=== PATIENT | male | born 1950 | race Caucasian/White ===

== ENCOUNTER 2019-09-26 05:39 | Inpatient (IN) ==
[2019-09-26] MEDS ORDERED: ceFAZolin 1,000 MG in SYRINGE 1 EACH IV ONE (06:00)
[2019-09-26] MEDS ORDERED: VANCOMYCIN INJ 1,000 MG in SODIUM CHLORIDE 0.9% 250 ML IV ONE (06:00)
[2019-09-26] MEDS ORDERED: ceFAZolin 1,000 MG VIAL ONE (06:03)
[2019-09-26] MEDS ORDERED: VANCOMYCIN 1,000 MG VIAL ONE (06:04)
[2019-09-26] MEDS ORDERED: GABAPENTIN 400 MG CAPSULE PO ONE (06:29)
[2019-09-26] MEDS ORDERED: DIAZEPAM 5 MG TABLET PO ONE (06:29)
[2019-09-26] MEDS ORDERED: ACETAMINOPHEN 500 MG TABLET PO ONE (06:29)
[2019-09-26] MEDS ORDERED: PANTOPRAZOLE 40 MG TABLET PO ONE ×2 (06:29→07:04)
[2019-09-26] MEDS ORDERED: LACTATED RINGERS 1,000 ML IV SCH (06:30)
[2019-09-26] MEDS ORDERED: PHENYLEPHRINE DRIP 20 MG/250 ML PREMIX IV ONE (06:57)
[2019-09-26] MEDS ORDERED: BUPIVACAINE SPINAL 0.75% 2 ML AMP SPINAL ONE (06:57)
[2019-09-26] MEDS ORDERED: ROPIVACAINE 0.5% 30 ML VIAL ONE (06:58)
[2019-09-26] MEDS ORDERED: DEXAMETHASONE 4 MG/1 ML VIAL ONE (06:58)
[2019-09-26] MEDS ORDERED: MIDAZOLAM 2 MG/2 ML VIAL ONE ×2 (06:58→11:34)
[2019-09-26] MEDS ORDERED: PROPOFOL 500 MG/50 ML BOTTLE IV ONE (06:58)
[2019-09-26] MEDS ORDERED: LIDOCAINE 1% 5 ML VIAL ONE (06:58)
[2019-09-26] MEDS ORDERED: DIAZEPAM 5 MG TABLET ONE (07:03)
[2019-09-26] MEDS ORDERED: ACETAMINOPHEN 500 MG TABLET ONE (07:04)
[2019-09-26] MEDS ORDERED: GABAPENTIN 400 MG CAPSULE ONE (07:04)
[2019-09-26] MEDS ORDERED: fentaNYL 100 MCG/2 ML VIAL ONE ×2 (08:17→11:34)
[2019-09-26 10:32] LABS: Amorphous Crystals,Urine Occasional /HPF (Few); Apearance,Urine CLEAR (Clear); Bilirubin,Urine Negative (Negative); Blood, Urine Negative (Negative); Glucose,Urine (UA) Negative (Negative); Hyaline Casts,Urine 1 /LPF (0-3); Ketones,Urine Negative (Negative); Mucus,Urine Occasional /LPF (Occasional); Nitrite,Urine Negative (Negative); Protein,Urine Negative; RBC,Urine 1 /HPF (0-4); Urine Color Yellow (Yellow); Urine Specific Gravity 1.017 (1.001-1.035); Urine Urobilinogen < 2.0 EU/DL (0.2-1.0); WBC,Urine <1 /HPF (0-6)
[2019-09-26] MEDS ORDERED: TEMAZEPAM 7.5 MG CAPSULE PO PRN (10:37)
[2019-09-26] MEDS ORDERED: PROMETHAZINE 25 MG/1 ML VIAL IM PRN (10:37)
[2019-09-26] MEDS ORDERED: LACTULOSE 20 GM/30 ML UDCUP PO PRN (10:37)
[2019-09-26] MEDS ORDERED: diphenhydrAMINE CAP 25 MG CAPSULE PO PRN (10:37)
[2019-09-26] MEDS ORDERED: ONDANSETRON 4 MG/2 ML VIAL IV PRN (10:37)
[2019-09-26] MEDS ORDERED: BISACODYL 10 MG SUPP RECTAL PRN (10:37)
[2019-09-26] MEDS ORDERED: traMADol 50 MG TABLET PO PRN (10:40)
[2019-09-26] MEDS ORDERED: COLCHICINE 0.6 MG CAPSULE PO SCH (10:45)
[2019-09-26] MEDS ORDERED: MORPHINE 4 MG/1 ML VIAL IV PRN (10:47)
[2019-09-26] MEDS ORDERED: KETAMINE 500 MG/10 ML VIAL ONE (11:34)
[2019-09-26] MEDS ORDERED: TRANEXAMIC ACID 1,000 MG/10 ML VIAL ONE (11:34)
[2019-09-26] MEDS ORDERED: GLYCOPYRROLATE 0.4 MG/2 ML VIAL ONE (11:35)
[2019-09-26] MEDS ORDERED: TUBERCULIN SKIN TEST 0.1 ML SYRINGE INTRADERM ONE (13:18)
[2019-09-26] MEDS: ceFAZolin 2,000 MG in PREMIX 1 EACH IV SCH (15:42)
[2019-09-26] MEDS: MORPHINE 4 MG/1 ML VIAL IV PRN ×2 (15:49→20:10)
[2019-09-26] MEDS ORDERED: predniSONE 20 MG TABLET PO SCH (16:00)
[2019-09-26 18:14] LABS: Basophils % 0.2 % (0.0-0.8); Eosinophils % 0.1 % (0.00-10.9); Hematocrit 44.1 VOL% (42.0-52.0); Hemoglobin 14.8 GM/DL (14.0-18.0); Immature Granulocytes % 0.3 %; Immature Granulocytes Absolute 0.03 #; Lymphocytes # 0.5 10*3/uL (1.4-4.0); Lymphocytes % 4.7 % (21.2-54.2); Mean Corpuscular HGB Conc 33.6 GM/DL (32-36); Mean Corpuscular Volume 92.5 FL (87-102); Monocytes % 4.4 % (1.7-12.7); Neutrophils % 90.3 % (38.7-73.9); Platelet Count 204 T/CUMM (130-400); Red Blood Count 4.77 MC/CUMM (3.8-5.5); Red Cell Distribution Width 13.2 % (9.3-17.3); White Blood Count 11.5 T/CUMM (4-12)
[2019-09-26 18:54] LABS: Band Neutrophils 1 % (0-10); Lymphocytes 4 % (20-55); Macrocytosis Slight; Platelet Estimate Normal; Segmented Neutrophils 90 % (50-85); Total Cells Counted 100
[2019-09-26 19:40] LABS: Albumin 3.1 G/DL (3.4-5.0); Bilirubin,Total 0.6 MG/DL (0.2-1.0); Calcium 8.2 MG/DL (8.5-10.1); Osmolality,Calculated 286.3 MOS/KG (273-304); Total Protein 6.3 G/DL (6.4-8.3)
[2019-09-26] MEDS: DOCUSATE SODIUM 100 MG CAPSULE PO SCH (20:11)
[2019-09-26] MEDS: FONDAPARINUX 2.5 MG/0.5 ML SYRINGE SUBCUT SCH (21:46)
[2019-09-27] MEDS: ceFAZolin 2,000 MG in PREMIX 1 EACH IV SCH (00:42)
[2019-09-27 04:53] LABS: Basophils % 0.1 % (0.0-0.8); Eosinophils % 0.1 % (0.00-10.9); Hematocrit 38.3 VOL% (42.0-52.0); Hemoglobin 13.1 GM/DL (14.0-18.0); Immature Granulocytes % 0.3 %; Immature Granulocytes Absolute 0.04 #; Lymphocytes % 7.3 % (21.2-54.2); Mean Corpuscular HGB Conc 34.2 GM/DL (32-36); Mean Corpuscular Volume 90.5 FL (87-102); Mean Platelet Volume 11.5 FL (9.6-12.0); Neutrophils % 85.2 % (38.7-73.9); Platelet Count 176 T/CUMM (130-400); Red Blood Count 4.23 MC/CUMM (3.8-5.5); Red Cell Distribution Width 13.2 % (9.3-17.3); White Blood Count 13.3 T/CUMM (4-12)
[2019-09-27 05:19] LABS: Calcium 8.4 MG/DL (8.5-10.1); Osmolality,Calculated 281.5 MOS/KG (273-304)
[2019-09-27 05:27] LABS: Risk Ratio 3.77; VLDL CHOLESTEROL 37.8 MG/DL
[2019-09-27] MEDS: TAMSULOSIN 0.4 MG CAPSULE PO SCH (09:11)
[2019-09-27] MEDS: ASPIRIN EC 81 MG TABLET PO SCH (09:11)
[2019-09-27] MEDS: ALLOPURINOL 300 MG TABLET PO SCH (09:11)
[2019-09-27] MEDS: OLMESARTAN 20 MG TABLET PO SCH (09:11)
[2019-09-27] MEDS: DOCUSATE SODIUM 100 MG CAPSULE PO SCH ×2 (09:12→21:02)
[2019-09-27] MEDS: VITAMIN E 400 UNIT CAPSULE PO SCH (09:12)
[2019-09-27] MEDS: LEVOTHYROXINE 75 MCG TABLET PO SCH (09:12)
[2019-09-27] MEDS: CYANOCOBALAMIN 500 MCG TABLET PO SCH (09:12)
[2019-09-27] MEDS: MELOXICAM 7.5 MG TABLET PO SCH ×2 (09:12→09:31)
[2019-09-27] MEDS: OMEGA 3 ACID ETHYL ESTERS 1 GM CAPSULE PO SCH (09:12)
[2019-09-27] MEDS: PYRIDOXINE 100 MG TABLET PO SCH (09:12)
[2019-09-27] MEDS: PANTOPRAZOLE 40 MG TABLET PO SCH (09:12)
[2019-09-27] MEDS: ROSUVASTATIN 10 MG TABLET PO SCH (09:12)
[2019-09-27] MEDS: FONDAPARINUX 2.5 MG/0.5 ML SYRINGE SUBCUT SCH (21:03)
[2019-09-28] MEDS: OLMESARTAN 20 MG TABLET PO SCH (09:10)
[2019-09-28] MEDS: TAMSULOSIN 0.4 MG CAPSULE PO SCH (09:10)
[2019-09-28] MEDS: MELOXICAM 7.5 MG TABLET PO SCH (09:10)
[2019-09-28] MEDS: ROSUVASTATIN 10 MG TABLET PO SCH (09:10)
[2019-09-28] MEDS: ALLOPURINOL 300 MG TABLET PO SCH (09:10)
[2019-09-28] MEDS: LEVOTHYROXINE 75 MCG TABLET PO SCH (09:10)
[2019-09-28] MEDS: OMEGA 3 ACID ETHYL ESTERS 1 GM CAPSULE PO SCH (09:11)
[2019-09-28] MEDS: VITAMIN E 400 UNIT CAPSULE PO SCH (09:11)
[2019-09-28] MEDS: ASPIRIN EC 81 MG TABLET PO SCH (09:11)
[2019-09-28] MEDS: CYANOCOBALAMIN 500 MCG TABLET PO SCH (09:11)
[2019-09-28] MEDS: PANTOPRAZOLE 40 MG TABLET PO SCH (09:11)
[2019-09-28] MEDS: DOCUSATE SODIUM 100 MG CAPSULE PO SCH ×2 (09:11→21:32)
[2019-09-28] MEDS: PYRIDOXINE 100 MG TABLET PO SCH (09:11)
[2019-09-28] MEDS: MAGNESIUM HYDROXIDE SUSP 30 ML UDCUP PO PRN ×2 (09:13→21:31)
[2019-09-28] MEDS: FONDAPARINUX 2.5 MG/0.5 ML SYRINGE SUBCUT SCH (21:32)
[2019-09-29 07:39] VITALS: BP 120/70
[2019-09-29] MEDS: TAMSULOSIN 0.4 MG CAPSULE PO SCH (09:07)
[2019-09-29] MEDS: MELOXICAM 7.5 MG TABLET PO SCH (09:08)
[2019-09-29] MEDS: DOCUSATE SODIUM 100 MG CAPSULE PO SCH (09:08)
[2019-09-29] MEDS: ALLOPURINOL 300 MG TABLET PO SCH (09:08)
[2019-09-29] MEDS: ASPIRIN EC 81 MG TABLET PO SCH (09:08)
[2019-09-29] MEDS: OLMESARTAN 20 MG TABLET PO SCH (09:08)
[2019-09-29] MEDS: PANTOPRAZOLE 40 MG TABLET PO SCH (09:08)
[2019-09-29] MEDS: ROSUVASTATIN 10 MG TABLET PO SCH (09:08)
[2019-09-29] MEDS: LEVOTHYROXINE 75 MCG TABLET PO SCH (09:08)
[2019-09-29] MEDS: CYANOCOBALAMIN 500 MCG TABLET PO SCH (09:09)
[2019-09-29] MEDS: OMEGA 3 ACID ETHYL ESTERS 1 GM CAPSULE PO SCH (09:09)
[2019-09-29] MEDS: VITAMIN E 400 UNIT CAPSULE PO SCH (09:09)
[2019-09-29] MEDS: PYRIDOXINE 100 MG TABLET PO SCH (09:09)
== END 2019-09-29 10:30 | disposition swing bed (61) | DRG 470 ==
LOC: N.SDSINP 05:39 → N.3E 09:00
PROVIDERS: ADMIT Orthopaedic Surgery; ATTEND Orthopaedic Surgery